=== PATIENT | female | born 1990 | race Caucasian/White ===

== ENCOUNTER 2017-06-01 17:08 | Observation (INO) | payer OTHER ==
[~2017-06-01 17:08] MED LIST: DSS100 PO; IBUP-2070 PO; PNV1TABL54 PO
[2017-06-01 18:32] VITALS: BP 109/68
== END 2017-06-01 20:15 | disposition home or self-care (01) ==
LOC: 4S 17:08
PROVIDERS: ADMIT Obstetrics & Gynecology; ATTEND Obstetrics & Gynecology
DX: O26.893 Other specified pregnancy related conditions, third trimester (principal); Z3A.38 38 weeks gestation of pregnancy
CPT/HCPCS: 59025; G0378

== ENCOUNTER 2017-06-05 03:58 | Inpatient (IN) | payer OTHER ==
[~2017-06-05 03:58] MED LIST changes: -DSS100 PO; -IBUP-2070 PO
[2017-06-05] MEDS ORDERED: RINGERS SOLUTION,LACTATED 1,000 ML IV SCH (04:28)
[2017-06-05] MEDS ORDERED: RINGERS SOLUTION,LACTATED 1,000 ML IV PRN (04:28)
[2017-06-05] MEDS ORDERED: FentaNYL CITRATE-PF 100 MCG/2 ML VIAL IVP PRN (04:30)
[2017-06-05] MEDS ORDERED: METOCLOPRAMIDE HCL 5 MG/ML 2 ML VIAL IVP PRN (04:30)
[2017-06-05] MEDS ORDERED: CITRIC ACID/SODIUM CITRATE 30 ML SOLUTION UDCUP PO PRN (04:30)
[2017-06-05 04:33] VITALS: BP 104/60
[2017-06-05] MEDS ORDERED: AMPICILLIN SODIUM 2 GM/NS 100 ML IV ONE ×2 (04:45→05:00)
[2017-06-05] MEDS ORDERED: OXYTOCIN 30 UNITS/LACT RINGERS 500 ML IV ONE ×2 (04:46→05:12)
[2017-06-05] MEDS ORDERED: OXYTOCIN 20 UNITS/LACT RINGERS 1,000 ML IV SCH (06:27)
[2017-06-05] MEDS ORDERED: BENZOCAINE 20%/MENTHOL 56 GM SPRAY CANISTER TP PRN (06:30)
[2017-06-05] MEDS ORDERED: OxyCODONE HCL/ACETAMINOPHEN 5-325 MG TABLET PO PRN ×2 (06:30)
[2017-06-05] MEDS ORDERED: MEASLES/MUMPS/RUBELLA VACCINE, LIVE 0.5 ML/VIAL SQ ONE (06:30)
[2017-06-05] MEDS ORDERED: GLYCERIN/WITCH HAZEL LEAF 40 PADS JAR TP PRN (06:30)
[2017-06-05] MEDS: IBUPROFEN 800 MG TABLET PO PRN ×2 (08:32→19:57)
[2017-06-05 08:35] LABS: BASOPHILS # (AUTO) 0.01 K/uL (0.00-0.20); EOSINOPHILS # (AUTO) 0.01 K/uL (0.00-0.70); HEMATOCRIT 39.8 % (36-46); HEMOGLOBIN 13.7 g/dL (12.0-16.0); LYMPHOCYTES # (AUTO) 0.9 K/uL (1.0-4.8); LYMPHOCYTES % (AUTO) 6.9 % (22.0-44.0); MEAN CORPUSCULAR HEMOGLOBIN 31.9 pg (26.0-34.0); MEAN CORPUSCULAR HGB CONC 34.4 G/dL (31.0-37.0); MEAN CORPUSCULAR VOLUME 93 fL (80-100); MONOCYTES # (AUTO) 0.2 K/uL (0.1-1.0); MONOCYTES % (AUTO) 1.6 % (2.0-9.0); NEUTROPHILS # (AUTO) 12.4 K/uL (1.8-7.7); RED BLOOD CELL COUNT(AUTO) 4.29 MIL/uL (4.00-5.20); RED CELL DISTRIBUTION WIDTH 14.8 % (11.5-14.5); WHITE BLOOD COUNT (AUTO) 13.6 K/uL (4.5-11.0)
[2017-06-05] MEDS: SENNA/DOCUSATE SODIUM 187-50 MG TABLET PO PRN ×3 (08:49→19:57)
[2017-06-05] MEDS: MAGNESIUM HYDROXIDE SUSPENSION 30 ML UDCUP PO PRN ×2 (08:49→19:58)
[2017-06-05 08:54] LABS: NEUTROPHILS % (AUTO) 91.3 % (40.0-70.0)
[2017-06-05] MEDS ORDERED: AMPICILLIN SODIUM 1 GM/NS 50 ML IV SCH (09:00)
[2017-06-05 10:02] LABS: RBC MORPHOLOGY COMMENT NORMAL RBC MORPH
[2017-06-05] MEDS ORDERED: LANOLIN 7 GM OINTMENT TP ONE (18:30)
[2017-06-06] MEDS ORDERED: MIDAZOLAM HCL 2 MG/2 ML VIAL ONE (05:49)
[2017-06-06] MEDS ORDERED: FentaNYL CITRATE-PF 100 MCG/2 ML VIAL ONE (05:49)
[2017-06-06 05:51] LABS: BASOPHILS # (AUTO) 0.04 K/uL (0.00-0.20); BASOPHILS % (AUTO) 0.5 % (0.0-2.0); EOSINOPHILS # (AUTO) 0.15 K/uL (0.00-0.70); EOSINOPHILS % (AUTO) 1.75 % (1.0-6.0); HEMATOCRIT 39.6 % (36-46); HEMOGLOBIN 13.6 g/dL (12.0-16.0); LYMPHOCYTES # (AUTO) 2.3 K/uL (1.0-4.8); LYMPHOCYTES % (AUTO) 27.2 % (22.0-44.0); MEAN CORPUSCULAR HGB CONC 34.2 G/dL (31.0-37.0); MEAN CORPUSCULAR VOLUME 94 fL (80-100); MONOCYTES # (AUTO) 0.5 K/uL (0.1-1.0); MONOCYTES % (AUTO) 5.3 % (2.0-9.0); NEUTROPHILS # (AUTO) 5.6 K/uL (1.8-7.7); NEUTROPHILS % (AUTO) 65.3 % (40.0-70.0); RED BLOOD CELL COUNT(AUTO) 4.24 MIL/uL (4.00-5.20); RED CELL DISTRIBUTION WIDTH 15.1 % (11.5-14.5); WHITE BLOOD COUNT (AUTO) 8.6 K/uL (4.5-11.0)
[2017-06-06] MEDS ORDERED: BUPIVACAINE HCL/PF 0.25% 30 ML VIAL ONE (06:53)
[2017-06-06] MEDS ORDERED: IBUP-2071 PO ×2 (08:22→08:28)
[2017-06-06] MEDS ORDERED: DSS100 PO (08:30)
[2017-06-06] MEDS ORDERED: PERCT PO (08:44)
[2017-06-06] MEDS: IBUPROFEN 800 MG TABLET PO SCH ×2 (09:15→14:24)
== END 2017-06-06 14:30 | disposition home or self-care (01) | DRG 775 ==
LOC: OBSVTOIN 03:58 → 4S 03:58
PROVIDERS: ADMIT Obstetrics & Gynecology; ATTEND Obstetrics & Gynecology
PROC: 10E0XZZ Delivery of Products of Conception, External Approach (ICD-10-PCS; principal; 2017-06-05)
DX: O80 Encounter for full-term uncomplicated delivery (principal); Z37.0 Single live birth; Z3A.37 37 weeks gestation of pregnancy
CPT/HCPCS: 88302; J0290; J2250; J2590; J3010; J3490; J7120